=== PATIENT | female | born 1975 | race Caucasian/White ===

== ENCOUNTER 2016-10-04 14:12 | Emergency (ER) | payer OTHER ==
[2016-10-04] MEDS ORDERED: Albuterol/Ipratropium 3.0-0.5 MG/3 ML Neb Soln NEB ONE (14:23)
[2016-10-04] MEDS ORDERED: Sodium Chloride 0.9% 10 ML Syringe FLUSH PRN ×2 (14:24→14:55)
[2016-10-04] MEDS ORDERED: LORazepam 2 MG/ML MDV IM ONE (14:25)
[2016-10-04 15:16] LABS: CHLORIDE,CL 105 mmol/L (98-107); SODIUM,NA 140 mmol/L (136-145)
[2016-10-04 20:06] VITALS: BP 119/65
--- NOTE | 2016-10-07 08:31 | ER ---
Date of Service: 10/04/2016 SUBJECTIVE: Fina presents to the emergency room with complaints of respiratory distress. The patient was on a field trip with her son and was walking up a steep hill when she began experiencing wheezing and difficulty breathing. She states that she does have problem with this secondary to deconditioning and states that she has had some issues with exercise-induced bronchospasm in the past. She states that she was breathing rapidly and began hyperventilating. EMS was summoned to the scene and they transported her to our facility. On arrival of EMS, she was found to have an O2 saturation of approximately 100% and was hyperventilating. She was experiencing carpopedal spasms. The patient states that she does have a history of anxiety and ADHD. She also has a history of atypical migraine and was evaluated for what was thought to be TIA, but was actually found to be anxiety related. She was subsequently started on bupropion and has not had any sequelae since then. PAST MEDICAL HISTORY: 1. Anxiety. 2. Depression. 3. ADHD. 4. Atypical migraine. MEDICATIONS: Wellbutrin XL 450 mg daily. ALLERGIES: Penicillin. REVIEW OF SYSTEMS: General: No fever or chills. HEENT: No sore throat, rhinorrhea, or congestion. Respiratory: Please see history of present illness. Cardiac: Denies any substernal chest pain. She states that she does have diffuse chest tightness that is worse with deep breathing. GI: No nausea, vomiting, or diarrhea. No melena, hematochezia, or hematemesis. : Denies any dysuria. Musculoskeletal: No myalgias or arthralgias. Neurologic: No fainting, blackouts, lightheadedness. PHYSICAL EXAMINATION: General: This is a 40-year-old female patient, who is in no acute distress. Vital Signs: Blood pressure is 119/65, pulse rate is 95, respiratory rate is 28, O2 saturations 98%. Skin: Warm, pink, and dry. HEENT: Head is normocephalic, atraumatic. Eyes, PERRLA. Extraocular movements are intact. Ears, TMs are clear. Mouth, oral mucosa is moist. Lungs: Clear to auscultation. Heart: Regular rate and rhythm. Abdomen: Soft, nontender. There is no hepatosplenomegaly or masses noted. Extremities: Without edema. Neurologic: She is alert, anxious, hyperventilating and tearful. LABORATORY DATA: WBC is 8.5, hemoglobin is 12.9, platelets are 216. Coags, PT is 9.9, INR is 0.9. D-dimer is 0.46. Chemistry, sodium is 140, potassium is 4.2, chloride is 105, bicarb is 24, BUN is 14, creatinine is 1.1, GFR is 54, glucose is 121, calcium is 9.0, corrected calcium is 9.32. Total bilirubin is 0.3, AST is 17, ALT is 26, alkaline phosphatase is 67. CRP is less than 2. Troponin is within normal limits. CT scan of the patient's brain was obtained. There was no evidence of any acute pathology. Portable chest x-ray was obtained. There was no evidence of any acute pathology. EMERGENCY ROOM COURSE: IV access was established. She was given Ativan 2 mg IM and was also given a DuoNeb breathing treatment which did help her breathing significantly. The patient began experiencing issues and episodes of abnormal aphasia that lasted approximately 30 minutes. At this time, CT scan was performed and Neurology was consulted and this was a similar presentation when it was thought that she was having a TIA previously. Her symptoms resolved and she was able to speak without difficulty after approximately 30 minutes. She remained stable in my care in the emergency room. ASSESSMENT: 1. Exercise-induced bronchospasm. 2. Acute anxiety, possible conversion reaction. PLAN: The patient will be discharged. Advised to follow up in the clinic in the next 7-10 days. She is to return if she develops any difficulties with speech, ambulation, numbness, or tingling in her extremities or other worrisome signs or symptoms. She was also given a DuoNeb or a prescription for an albuterol inhaler with instructions to take 2 puffs every 4-6 hours as needed for dyspnea. All questions were answered. MWK: 10/04/2016 23:59:12 MODL: 10/05/2016 04:06:20 /[id number]
== END 2016-10-04 16:35 | disposition home or self-care (01) ==
LOC: VM.ED 14:12
DX: J45.990 Exercise induced bronchospasm (principal); F41.9 Anxiety disorder, unspecified; F32.9 Major depressive disorder, single episode, unspecified; G43.909 Migraine, unspecified, not intractable, without status migrainosus
CPT/HCPCS: 36415; 70450; 80053; 84484; 85025; 85379; 85610; 86140; 93005; 96372; 99284; J2060